=== PATIENT | female | born 1970 ===

== ENCOUNTER 2017-06-04 02:28 | Emergency (ER) | payer SELFPAY ==
[2017-06-04 02:35] VITALS: BP 140/102
--- NOTE | 2017-06-04 03:27 | XRay Report ---
FINAL REPORT PROCEDURE: XR CHEST ROUTINE 2V TECHNIQUE: PA and lateral chest radiographs were obtained. CPT 73507 HISTORY: Shortness of breath COMPARISON: No prior studies are available for comparison. FINDINGS: Heart: Normal. Mediastinum/Vessels: Normal. Lungs/Pleural space: Normal. Bony thorax: No acute osseous abnormality. Other: IMPRESSION: Normal examination.
[2017-06-04 04:28] LABS: Basophils # (Auto) 0.1 K/mm3 (0.0-0.1); Basophils % (Auto) 0.6 % (0.0-1.8); Eosinophils # (Auto) 0.1 K/mm3 (0.0-0.4); Eosinophils % (Auto) 0.9 % (0.0-4.3); Hematocrit 40.1 % (30.3-42.9); Hemoglobin 13.3 gm/dl (10.1-14.3); Lymphocytes # (Auto) 2.9 K/mm3 (1.2-5.4); Lymphocytes % (Auto) 31.7 % (13.4-35.0); Mean Corpuscular HGB Conc 33 % (30-34); Mean Corpuscular Hemoglobin 27 pg (28-32); Mean Corpuscular Volume 81 fl (79-97); Monocytes # (Auto) 0.6 K/mm3 (0.0-0.8); Monocytes % (Auto) 6.8 % (0.0-7.3); Platelet Count 197 K/mm3 (140-440); Red Blood Count 4.94 M/mm3 (3.65-5.03); Red Cell Distribution Width 14.8 % (13.2-15.2)
[2017-06-04 04:38] LABS: INR 0.93 (0.87-1.13)
[2017-06-04 04:39] LABS: Partial Thromboplastin Time 29.5 Sec. (24.2-36.6)
[2017-06-04 05:01] LABS: Calcium 8.7 mg/dL (8.4-10.2)
--- NOTE | 2017-06-04 10:23 | Emergency Department Report ---
HPI - General Chief Complaint: Dyspnea/Respdistress Time Seen by Provider: 06/04/17 10:18 - HPI HPI: Mrs. Dueñas is a pleasant 47-year-old female with history of atrial fibrillation, hyperthyroidism, diabetes and hypertension. She presents with 2- 3 days of productive cough with green sputum. She also has chills and body aches. She was concerned that she had bruising to both knees while she is on Plavix. She is recently discharged from [facility] in [facility] 2 weeks ago. She was treated for severe hypertension and possible lung infection. Recently, she finished a course of antibiotics. Currently she has mild headache and mild upper back pain. Body aches and productive cough green sputum. She also is a smoker. Patient lives in [facility]. She came to the [place] area to visit her daughter and 3 grandchildren. She will return to [place] tomorrow. She has not yet had a chance to follow-up from her recent hospitalization. ED Past Medical Hx - Past Medical History Previous Medical History?: Yes Hx Hypertension: Yes Hx Diabetes: Yes Additional medical history: A-fib, hyperthyroidism - Surgical History Past Surgical History?: No Additional Surgical History: tubal ligation - Social History Smoking Status: Current Every Day Smoker Substance Use Type: None ED Review of Systems ROS: Stated complaint: COLD SX Other details as noted in HPI Comment: All other systems reviewed and negative Constitutional: chills, fever, malaise Respiratory: cough Physical Exam - Physical Exam Vital Signs: Vital Signs 06/04/17 06/04/17 02:30 02:47 Temperature 98.4 F 98.4 F Pulse Rate 77 78 Respiratory 16 20 Rate Blood Pressure 140/102 140/102 O2 Sat by Pulse 98 97 Oximetry Physical Exam: General: Well-appearing, no acute distress HEENT: Normocephalic atraumatic pupils equal round and reactive to light anicteric sclera Nose: no rhinorrhea Oropharynx: Clear mucous membranes no lesions Neck: supple, no meningismus Chest: Clear to auscultation bilaterally no rales rhonchi no wheezes Cardiac: Regular rate and rhythm no murmurs no rubs no gallops Abdomen: Soft nontender nondistended positive bowel sounds no guarding Extremities: No cyanosis no clubbing no edema Neuro: Moves all extremities 4, no gross deficits Psychiatric: Alert and oriented 4 normal aspect normal judgment normal inside Skin: 1.5 cm scaly patch left flank, small papular scaly lesion LLQ, 2 cm bruise medial aspect of right knee right knee: no effusion, FROM, no tenderness ED Course Vital Signs 06/04/17 06/04/17 02:30 02:47 Temperature 98.4 F 98.4 F Pulse Rate 77 78 Respiratory 16 20 Rate Blood Pressure 140/102 140/102 O2 Sat by Pulse 98 97 Oximetry ED Medical Decision Making - Lab Data Result diagrams: 06/04/17 03:31 06/04/17 03:31 - EKG Data -: EKG Interpreted by Me - EKG Data 06/04/17 10:24 EKG obtained at 304 Normal sinus rhythm rate of 75 bpm left axis deviation normal QT interval no ST elevation no signs of ischemia normal T-wave pattern - Medical Decision Making Ms. Cornelius presents with flu-like illness. Recent use of antibiotics. Afebrile. I recommended supportive care instructions. No evidence of PNA on CXR. minimal bruising on right knee, will continue plavix 1. acute viral syndrome 2. dermatitis, non specified 3. ecchymoses Critical care attestation.: If time is entered above; I have spent that time in minutes in the direct care of this critically ill patient, excluding procedure time. ED Disposition Clinical Impression: Acute viral syndrome, Dermatitis, Bruising Disposition: - TO HOME OR SELFCARE Is pt being admited?: No Does the pt Need Aspirin: No Condition: Good Instructions: Acute Bronchitis (ED) Referrals: PRIMARY CARE, [Primary Care Provider] - 3-5 Days Time of Disposition: 10:27
== END 2017-06-04 10:44 | disposition home or self-care (01) ==
LOC: ED 02:28
DX: B34.9 Viral infection, unspecified (principal); L30.9 Dermatitis, unspecified; S80.01XA Contusion of right knee, initial encounter; I10 Essential (primary) hypertension; E11.9 Type 2 diabetes mellitus without complications; I48.91 Unspecified atrial fibrillation; E05.90 Thyrotoxicosis, unspecified without thyrotoxic crisis or storm; F17.200 Nicotine dependence, unspecified, uncomplicated; Z98.51 Tubal ligation status; X58.XXXA Exposure to other specified factors, initial encounter; Y93.89 Activity, other specified; Y99.8 Other external cause status; Y92.89 Other specified places as the place of occurrence of the external cause
CPT/HCPCS: 36415; 71046; 80048; 85025; 85610; 85730; 93005; 93010